=== PATIENT | female | born 1960 | race Hispanic/Latino ===

== ENCOUNTER 2017-08-23 10:17 | Day surgery (SDC) | payer SELFPAY ==
[2017-08-23] MEDS ORDERED: Ringers Lactate 1,000 ML IV ONE (10:52)
[2017-08-23] MEDS ORDERED: BUPIVACA 0.25%/EPI 0.0005%/PF 30 ML VIAL ONE (10:53)
[2017-08-23] MEDS ORDERED: PROPOFOL 200 MG/20 ML VIAL IV ONE (11:30)
[2017-08-23] MEDS ORDERED: LIDOCAINE 2% MPF 5 ML VIAL ONE (11:31)
[2017-08-23] MEDS ORDERED: FENTANYL CITR 100 MCG/2 ML ONE (11:31)
[2017-08-23] MEDS ORDERED: MIDAZOLAM HCL 2 MG/2 ML INJ ONE (11:31)
[2017-08-23] MEDS ORDERED: CEFAZOLIN/SWI 1gm 1 GM/10 ML SYR ONE (13:03)
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
== END 2017-08-23 13:42 | disposition home or self-care (01) ==
LOC: OR 10:17
PROVIDERS: ATTEND Surgery
PROC: 0HB6XZZ Excision of Back Skin, External Approach (ICD-10-PCS; principal; 2017-08-23 10:45)
DX: L72.3 Sebaceous cyst (principal); Z53.9 Procedure and treatment not carried out, unspecified reason
CPT/HCPCS: J0690; J2250; J3010

== ENCOUNTER 2017-08-31 06:40 | Day surgery (SDC) | payer SELFPAY ==
[2017-08-31] MEDS ORDERED: Ringers Lactate 1,000 ML IV ONE (07:34)
[2017-08-31] MEDS ORDERED: CEFAZOLIN/SWI 1gm 1 GM/10 ML SYR ONE (07:35)
[2017-08-31] MEDS ORDERED: BUPIVACA 0.25%/EPI 0.0005%/PF 30 ML VIAL ONE (09:15)
[2017-08-31] MEDS ORDERED: MIDAZOLAM HCL 2 MG/2 ML INJ ONE (10:32)
[2017-08-31] MEDS ORDERED: PROPOFOL 200 MG/20 ML VIAL IV ONE (10:32)
[2017-08-31] MEDS ORDERED: LIDOCAINE 1% MPF 5 ML VIAL ONE (10:33)
[2017-08-31] MEDS ORDERED: FENTANYL CITR 100 MCG/2 ML ONE (10:33)
[2017-08-31] MEDS ORDERED: ONDANSETRON 4 MG/2 ML VIAL ONE ×2 (10:57→11:36)
[2017-08-31] MEDS ORDERED: EPHEDRINE SULF 50 MG/5 ML SYR ONE (10:58)
--- NOTE | 2017-08-31 11:08 | P.OP ---
Parking Manager: Lauro Acuna Preoperative diagnosis: Upper Back Sebacous cyst Postoperative diagnosis: Upper Back Sebacous cyst Primary procedure: Excision of Upper Back Sebacous cyst Anesthesia: GETA + Local Estimated blood loss: <5cc Specimen: Sebaceous Cyst with sebum Findings: ruptured with drainage externally Complications: None Transferred to: Recovery Room Condition: Good
[2017-08-31] MEDS ORDERED: MEPERIDINE HCL 25 MG/0.5 ML ONE (11:35)
[2017-08-31] MEDS: MEPERIDINE HCL 25 MG/0.5 ML ONE ×2 (11:45→11:50)
[2017-08-31] MEDS ORDERED: CODEINE 30MG/APAP 300MG TAB ONE (12:21)
[2017-08-31] MEDS ORDERED: PROMETHAZINE 25 MG/ML VIAL ONE (14:18)
--- NOTE | 2017-08-31 22:39 | OP ---
Date of Procedure: 08/31/2017 Surgeon: Mikael Nguyễn MD, Preoperative Diagnosis: Upper back sebaceous cyst. Postoperative Diagnosis: Upper back sebaceous cyst. Procedure Performed: Excision of 4 cm upper back sebaceous cyst. Anesthesia: General endotracheal plus local. Estimated Blood Loss: Less 5 cc. Specimen: Sebaceous cyst with sebum. Findings: Sebaceous cyst was ruptured prior to incision and draining sebum through the external skin . Complications: None. Disposition: Transferred to recovery room in good condition. Procedure In Detail: After informed consent was obtained, the patient was brought to the operating r oom and prepped and draped in the usual sterile fashion. After adequate anesthesia was achieved, the area was additionally anesthetized with 0.25% Marcaine with epinephrine. Sharply incised a small el lipse of skin, was taken out where it was noted to be compromised by the cyst due to its close proxim ity. This ellipse of skin was sent off for pathologic examination. The dissection continued down ci rcumferentially to expose the entire cyst. The entire cyst was removed en bloc and with the associat ed sebum was sent for pathologic examination. The area was then copiously irrigated. Hemostasis was achieved with electrocautery. The skin was then closed with a vertical mattress stitch using a 2-0 nylon interrupted fashion and a few interrupted sutures in between of the same type. Sterile dressin g was placed over the top. The patient tolerated the procedure well without evidence of complication and transected back in good condition. All counts were correct at the end of the case. GRACE/SANTANA Voice ID: [id number] Report ID: [id number]
== END 2017-08-31 12:55 | disposition home or self-care (01) ==
LOC: OR 06:40
PROVIDERS: ATTEND Surgery
PROC: 0JB70ZZ Excision of Back Subcutaneous Tissue and Fascia, Open Approach (ICD-10-PCS; principal; 2017-08-31 09:15)
DX: L72.3 Sebaceous cyst (principal)
CPT/HCPCS: 88304; 88305; J0690; J2175; J2250; J2405; J2550; J3010

== ENCOUNTER 2021-04-14 18:25 | Emergency (ER) | payer OTHER, SELFPAY ==
--- OUTSIDE RECORDS SUMMARY | 2021-04-14 18:33 | XMS REPORT | Continuity of Care Document ---
:1960 Author Organization [facility] t Address [address] [place] [address] Care Team Providers Name Role Phone Unavailable Unavailable Unavailable Problems This patient has no known problems. Allergies, Adverse Reactions, Alerts This patient has no known allergies or adverse reactions. Medications Ordered Filled Start Stop Current Ordering Indication Dosage Frequency Signature Comments Components Source Medication Medication Date Date Medication? Clinician (SIG) Name Name Citalopram Citalopram Yes Na Arita TAKE [address] [facility] Hydrobromid Hydrobromid TABLET BY [facility] Procedures This patient has no known procedures. Encounters Start End Encounter Admission Attending Care Care Encounter Source Date/Time Date/Time Type Type Clinicians Facility Department ID 2021-02-18 2021-02-18 Outpatient [facility] [id number] [facility] 2020-08-19 2020-08-19 Outpatient [facility] [id number] [facility] 2020-08-03 2020-08-03 Outpatient [facility] [id number] [facility] 2020-04-24 2020-04-24 Outpatient [facility] [id number] [facility] 2020-01-10 2020-01-10 [facility] [id number] [facility] 14[facility]17[facility]17[facility] [place] [facility] 2019-08-29 2019-08-29 [facility] [id number] [facility] 11:00:00 11:00:00 [place] [facility] l Medicine Outpati ent Clinics 2019-02-26 2019-02-26 [facility] [id number] [facility] 11:00:00 11:00:00 [place] [facility] 2018-07-24 2018-07-24 [facility] [id number] [facility] 09:00:00 09:00:00 [place] [facility] l Medicine Outpati ent Clinics 2018-05-23 2018-05-23 [facility] [id number] [facility] 09:53:00 09:53:00 [place] [facility] Clin[facility] 2018-05-22 2018-05-22 [facility] [id number] [facility] 16:53:00 16:53:00 [place] [address] [facility] Clin[facility] 2018-04-20 2018-04-20 [facility] [id number] [facility] 08:31:00 08:31:00 [place] [facility] [employer] [facility] Out[facility] Clinics 2018-04-11 2018-04-11 [facility] [id number] [facility] [address] 10:15:00 10:15:00 [place] [address] [facility] Clin[facility] 2017-10-04 2017-10-04 [facility] [id number] [facility] 08:45:00 08:45:00 [place] [facility] [facility] Clin[facility] Results This patient has no known results.
[2021-04-14 19:53] LABS: Basophils % 1.1 % (0-1.3); Hematocrit 40.7 % (36.0-45.0); Lymphocytes % 39.6 % (15.3-44.8); MPV 8.1 fL (7.6-11.3); RBC Red Blood Cell Count 4.97 M/uL (3.86-4.86)
[2021-04-14 19:56] LABS: Protime INR 0.87
[2021-04-14 20:35] LABS: Potassium 3.5 mmol/L (3.5-5.1)
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
[2021-04-14 21:56] VITALS: BP 156/80; TEMP 98; O2SAT 94
== END 2021-04-14 21:39 | disposition home or self-care (01) ==
LOC: ER 18:25
DX: S39.012A Strain of muscle, fascia and tendon of lower back, initial encounter (principal); R19.04 Left lower quadrant abdominal swelling, mass and lump; R10.9 Unspecified abdominal pain; V49.40XA Driver injured in collision with unspecified motor vehicles in traffic accident, initial encounter
CPT/HCPCS: 85025; 80048; 36415; 85610; 85730; 71260; 74177; 99284; Q9967

== ENCOUNTER 2024-04-12 15:05 | Emergency (ER) | payer OTHER, SELFPAY ==
[2024-04-12] MEDS ORDERED: PHENAZOPYRIDINE 100MG TAB PO ONE (16:01)
[2024-04-12] MEDS ORDERED: KETOROLAC 30 MG/ML INJ ONE (16:01)
[2024-04-12 16:39] LABS: Renal Epithelial <5 /HPF (None Seen); Specific Gravity 1.009 (1.005-1.030); Sqamous Epithelial <5 /HPF (None Seen); Urine Bacteria <20 /HPF (<20); Urine Bilirubin NEGATIVE (Negative); Urine Blood 1+ (Negative); Urine Clarity Turbid (Clear); Urine Color Light-Yellow (Yellow); Urine Culture Reflex Order REFLEXED; Urine Glucose NEGATIVE (Negative); Urine Ketones NEGATIVE (Negative); Urine Micro Reflex YN NO BILL MICROSCOPIC; Urine Nitrite NEGATIVE (Negative); Urine Protein NEGATIVE (Negative); Urine RBC 21-50 /HPF (None Seen); Urine Urobilinogen Normal (Normal); Urine WBC >50 /HPF (<5); Urine pH 6.5 (5.0-7.0)
[2024-04-12] MEDS ORDERED: NITROFURAN MACRO 100 MG CAP PO ONE (16:59)
--- NOTE | 2024-04-12 17:00 | ER ---
Nurse's Notes [facility] Name: Gisele Rodriguez Age: 64 yrs Sex: Female : 1960 Arrival Date: 04/12/2024 Time: 15:05 Bed 13 Private MD: Diagnosis: UTI/ Urinary tract infection, site not specified Presentation: 04/12 15:49 Chief complaint: Patient states: Burning with urination, frequency, and lower abdominal rs5 pain that started this morning. Coronavirus screen: At this time, the client does not indicate any symptoms associated with coronavirus-19. Ebola Screen: No symptoms or risks identified at this time. Initial Sepsis Screen: Does the patient meet any 2 criteria? No. Patient's initial sepsis screen is negative. Does the patient have a suspected source of infection? No. Patient's initial sepsis screen is negative. Risk Assessment: Do you want to hurt yourself or someone else? Patient reports no desire to harm self or others. Onset of symptoms was April 12, 2024. 15:49 Method Of Arrival: Ambulatory rs5 15:49 Acuity: PARVEEN 3 rs5 Historical: - Allergies: 15:50 No Known Allergies; rs5 - PMHx: 15:50 UTI; Hypertensive disorder; Hypercholesterolemia; rs5 - PSHx: 15:50 hysterectomy; rs5 - Immunization history:: Adult Immunizations up to date. - Infectious Disease History:: Denies. - Social history:: Smoking status: Patient denies any tobacco usage or history of. Screenin:20 [facility] ED Fall Risk Assessment (Adult) History of falling in the last 3 months, rs5 including since admission No falls in past 3 months (0 pts) Confusion or Disorientation No (0 pts) Intoxicated or Sedated No (0 pts) Impaired Gait No (0 pts) Mobility Assist Device Used No (0 pt) Altered Elimination No (0 pt) Score/Fall Risk Level 0 - 2 = Low Risk Oriented to surroundings, Maintained a safe environment. Abuse screen: Denies threats or abuse. Nutritional screening: No deficits noted. Tuberculosis screening: No symptoms or risk factors identified. Assessment: 15:15 Reassessment: called pt to exam room. Pt requesting to wait until her special needs ss family member gets picked up from ER lobby. HANNAH Thomas notified. 15:15 Reassessment: pt is still waiting for family member to get picked up from ER lobby. ss 15:50 Reassessment: pt arrived in room . rs5 15:50 General: Appears in no apparent distress. uncomfortable, Behavior is calm, cooperative. rs5 Pain: Denies pain. Complains of pain in lower abdomen Pain does not radiate. Pain currently is 3 out of 10 on a pain scale. Quality of pain is described as aching, Is continuous. Neuro: Level of Consciousness is awake, alert, obeys commands, Oriented to person, place, time, situation. Cardiovascular: Patient's skin is warm and dry. Respiratory: Airway is patent Respiratory effort is even, unlabored, Respiratory pattern is regular, symmetrical. GI: Abdomen is round non-distended, Abd is soft and non tender X 4 quads. GI: No signs and/or symptoms were reported involving the gastrointestinal system. : Reports burning with urination, cramping, urgency. EENT: No signs and/or symptoms were reported regarding the EENT system. Derm: Skin is intact, Skin is pink, warm \T\ dry. Musculoskeletal: Range of motion: intact in all extremities. 16:29 Reassessment: Patient and/or family updated on plan of care and expected duration. Pain rs5 level reassessed. Patient is alert, oriented x 3, equal unlabored respirations, skin warm/dry/pink. 16:59 Reassessment: Patient and/or family updated on plan of care and expected duration. Pain rs5 level reassessed. Patient is alert, oriented x 3, equal unlabored respirations, skin warm/dry/pink. Vital Signs: 15:49 BP 134 / 71; Pulse 74; Resp 17; Temp 98(O); Pulse Ox 99% ; rs5 16:10 BP 125 / 77; Pulse 81; Resp 17; Pulse Ox 98% on R/A; rs5 16:50 BP 128 / 74; Pulse 77; Resp 17; Pulse Ox 99% on R/A; rs5 ED Course: 15:11 Patient arrived in ED. ra3 15:11 Chery Whitlock [facility]-C is [facility]. sb4 15:11 Julius De Leon MD is Attending Physician. sb4 15:16 Ze Concepcion, RN is Primary Nurse. bp 15:25 Frank Guzmán, ZENIA is Primary Nurse. rs5 15:50 Triage completed. rs5 15:50 Patient has correct armband on for positive identification. Placed in gown. Bed in low rs5 position. Call light in reach. Side rails up X2. 15:50 No provider procedures requiring assistance completed. rs5 17:05 Patient did not have IV access during this emergency room visit. rs5 Administered Medications: 16:00 Drug: Ketorolac IM 30 mg IM once Route: IM; Site: left deltoid; rs5 17:00 Follow up: Response: No adverse reaction; Pain is decreased rs5 16:09 Drug: Phenazopyridine PO 200 mg PO once Route: PO; rs5 17:00 Follow up: Response: No adverse reaction rs5 17:00 Drug: Macrobid PO 100 mg PO once; administer with food Route: PO; rs5 Medication: 16:29 VIS not applicable for this client. rs5 Outcome: 16:59 Discharge ordered by MD. sb4 17:05 Discharged to home ambulatory, rs5 17:05 Condition: stable rs5 17:05 Discharge instructions given to patient, family, Instructed on discharge instructions, follow up and referral plans. medication usage, Demonstrated understanding of instructions, follow-up care, medications, Prescriptions given X 1, 17:06 Patient left the ED. rs5 Signatures: Afia Mcdaniel RN Ze Dumont RN RN bp Brown, Sophia, PA-Nestor CARNEY sb4 Frank Guzmán RN RN rs5 Yajaira Garibay ra3
--- NOTE | 2024-04-12 17:00 | EDPHYS ---
Physician Documentation [facility] Name: Gisele Rodriguez Age: 64 yrs Sex: Female : 1960 Arrival Date: 04/12/2024 Time: 15:05 Bed 13 Private MD: ED Physician Julius De Leon HPI: 04/12 15:52 This 64 yrs old Female presents to ER via Ambulatory with complaints of sb4 Urinary Problem. 15:52 The patient presents with urinary symptoms, dysuria, frequency, urgency. Onset: The sb4 symptoms/episode began/occurred this morning. Modifying factors: The symptoms are alleviated by nothing, the symptoms are aggravated by nothing. Associated signs and symptoms: Pertinent negatives: dyspareunia, fever, hematuria, nausea, vaginal bleeding, vaginal discharge, vomiting. The patient has experienced similar episodes in the past, a few times, but today's symptoms are worse, more painful. Historical: - Allergies: 15:50 No Known Allergies; rs5 - PMHx: 15:50 UTI; Hypertensive disorder; Hypercholesterolemia; rs5 - PSHx: 15:50 hysterectomy; rs5 - Immunization history:: Adult Immunizations up to date. - Infectious Disease History:: Denies. - Social history:: Smoking status: Patient denies any tobacco usage or history of. ROS: 15:52 Positive for urinary symptoms, burning with urination, sb4 15:52 Constitutional: Negative for fever, chills, and weight loss, 15:52 All other systems are negative, Exam: 15:52 Head/Face: Normocephalic, atraumatic. Eyes: Extra-ocular motions intact. Periorbital sb4 areas with no swelling, redness, or edema. ENT: Mucous membranes moist. Respiratory: No increased work of breathing, no retractions or nasal flaring. Abdomen/GI: Soft, non-tender, no distension. Back: No spinal tenderness. No costovertebral tenderness. Full range of motion. Skin: Warm, dry with normal turgor. Normal color with no rashes, no lesions, and no evidence of cellulitis. 15:52 Constitutional: The patient appears alert, awake, uncomfortable, Vital Signs: 15:49 BP 134 / 71; Pulse 74; Resp 17; Temp 98(O); Pulse Ox 99% ; rs5 16:10 BP 125 / 77; Pulse 81; Resp 17; Pulse Ox 98% on R/A; rs5 16:50 BP 128 / 74; Pulse 77; Resp 17; Pulse Ox 99% on R/A; rs5 MDM: 15:16 Medical Screening Exam initiated sb4 16:58 Data reviewed: vital signs, nurses notes, lab test result(s), and as a result, I will sb4 discharge patient. Counseling: I had a detailed discussion with the patient and/or guardian regarding the historical points, exam findings, and any diagnostic results supporting the discharge/admit diagnosis, lab results, to return to the emergency department if symptoms worsen or persist or if there are any questions or concerns that arise at home. 04/12 15:20 Order name: UAM; Complete Time: 16:48 sb4 04/12 16:49 Order name: Urine Culture EDMS Administered Medications: 16:00 Drug: Ketorolac IM 30 mg IM once Route: IM; Site: left deltoid; rs5 17:00 Follow up: Response: No adverse reaction; Pain is decreased rs5 16:09 Drug: Phenazopyridine PO 200 mg PO once Route: PO; rs5 17:00 Follow up: Response: No adverse reaction rs5 17:00 Drug: Macrobid PO 100 mg PO once; administer with food Route: PO; rs5 Disposition Summary: 04/12/24 16:59 Discharge Ordered Notes: Location: Home sb4 Problem: new sb4 Symptoms: have improved sb4 Condition: Stable sb4 Diagnosis - UTI/ Urinary tract infection, site not specified sb4 Followup: sb4 - With: Emergency Department - When: As needed - Reason: Fever > 102 F, Worsening of condition Discharge Instructions: - Discharge Summary Sheet sb4 - Urinary Tract Infection, Adult, [id number] sb4 Forms: - Antibiotic Education sb4 - Patient Portal Instructions sb4 - Leadership Thank You Letter sb4 Prescriptions: - Macrobid 100 mg Oral capsule - take 1 capsule ORAL route every 12 hours for 5 days; 10 capsule; Refills: 0, sb4 Product Selection Permitted Signatures: Dispatcher [employer] Chery Gerardo PA-C PA-C sb4 Frank Guzmán RN RN rs5
[2024-04-12 19:50] VITALS: TEMP 98
[2024-04-12 19:52] VITALS: BP 128/74; O2SAT 99
--- OUTSIDE RECORDS SUMMARY | 2024-04-15 08:18 | XMS REPORT | Continuity of Care Document ---
Author Name Unknown Address [address] [facility] [address] [place] [address] [facility] thconnect Address [address] [facility] [address] [place] [address] Care Team Providers Care Electrician Telephone Name Role Phone Ruth Anderson Primary Care Physicia n Yaquelin Rouse Attending Clinician Unavailab Ana Loomis Attending Clinician Unavailable Nora Arita Attending Clinician Unavailable SILVIO PLASENCIA Attending Clinician Unavailab ELANA Basurto Attending Clinician Unavailable LAB47 Attending Clinician Unavailable TIMOTEO SANTIAGO Attending Clinician UnavailAIME Ojeda Attending Clinician Unavailable MD NADINE Attending Clinician Unavailab le LAB90 Attending Clinician Unavailable [facility], [facility] Attending Clinician Unavailable Ruth Anderson Attending Clinician + Dorothy Urbano MD Attending Clinician [phone] DOROTHY URBANO Attending Clinician Unavailable Pgy2 Attending Clinician Unavailable Marla Valentino Attending Clinician [phone] RUTH FOOTE Attending Clinician Unavail able Doctor Unassigned, Portia Attending Clinician U navailable Pgy1 Attending Clinician Unavailable DOROTHY URABNO Admitting Clinician Unavailable Payers Payer Name Policy Type Policy Number Effective Date Expirati on Date Source [employer] MP [employer] 1 O [employer] 73 ON 9 [id number] 2023 00:00:00 Problems Condition Name Condition Details Condition Category Status Onset Date Resolution Date Last Treatment Date Treating Clinician Comments Source Cyst of left ovary Cyst of left ovary Disease Active 2023-05 0 00:00: 00 Zahraa Duncan - [facility] Depression with anxiety Depression with anxiety Disease Active 01-24 00:00: 00 Zahraa Duncan - [facility] Gastroesop hageal reflux disease without esophagiti s Gastroesop hageal reflux disease without esophagiti s Disease Active 01-24 00:00: 00 Zahraa Duncan - [facility] Skin lesion of breast Skin lesion of breast Disease Active 07-06 00:00: 00 Zahraa Duncan - [facility] Well adult exam Well adult exam Disease Active 05-15 00:00: 00 Zahraa Duncan - [facility] Primary hypertensi on Primary hypertensi on Disease Active 2022-05 00:00: 00 Zahraa Daley [facility] Hyperlipid emia Hyperlipid emia Disease Active 2022-05 00:00: 00 Zahraa Duncan - [facility] Other general counseling and advice for contracept law management Other general counseling and advice for contracept law management Disease Active 05-17 00:00: 00 [facility] History of partial hysterecto my History of partial hysterecto my Disease Active 05-17 00:00: 00 [facility] Essential hypertensi on, benign Essential hypertensi on, benign Disease Active 05-17 00:00: 00 [facility] Cyst of left ovary Cyst of left ovary Disease Active 05-17 00:00: 00 Overview: Formattin g of this note might be different from the original. 18.3x10 cm [facility] Dependent relative needing care at home Caregiver burden Problem [facility] Obesity Obesity (BMI 30.0-34.9) Problem [facility] Generalize d anxiety disorder AMBER (generaliz ed anxiety disorder) Problem [facility] White coat hypertensi on White coat hypertensi on Problem [facility] Counseling about tobacco use Tobacco abuse counseling Problem [facility] [id number] Prediabete s Problem [facility] [id number] Hypertrigl yceridemia Problem [facility] Depression Depression Problem [facility] [id number] Primary insomnia Problem [facility] Nicotine dependence Nicotine dependence Problem [facility] Sinusitis Sinusitis Problem [facility] Chronic fatigue syndrome Chronic fatigue Problem [facility] [id number] Other chronic pain Problem [facility] [id number] Generalize d anxiety disorder Problem [facility] Depression Depression Disease Active Maday Duncan - Externa l Social History Social Habit Start Date Stop Date Quantity Comments Source Sexual orientation Maday Duncan - External ASSERTION Not Zahraa Duncan - External History of tobacco use Cigarette Smoker Zahraa franco - External Exposure to SARS-CoV-2 (event) [facility] Alcoholic beverage intake 2024-03-25 00:00:00 2024-03-25 00:00:00 Current drinker of alcohol (finding) Zahraa Duncan - External Alcohol Comment 2024-01-17 00:00:00 2024-01-17 00:00:00 social Zahraa Duncan - External Tobacco Comment 2024-01-17 00:00:00 2024-01-17 00:00:00 1 pk/day Zahraa Duncan - External Cigarettes smoked current (pack per day) - Reported 2024-01-17 00:00:00 2024-01-17 00:00:00 Zahraa Daley External Cigarette pack-years 2024-01-17 00:00:00 2024-01-17 00:00:00 Zahraa Duncan - External Tobacco use and exposure 2024-01-17 00:00:00 2024-01-17 00:00:00 Smokeless tobacco non-user Zahraa Duncan - External Alcohol intake 2023-07-07 00:00:00 2023-07-07 00:00:00 Current drinker of alcohol (finding) Zahraa Duncan - External History of Social function 2023-04-12 00:00:00 2023-04-12 00:00:00 Zahraa Morelsocratessalvador - External Sex 2023-04-07 16:55:49 2023-04-07 16:55:49 Female (finding) Zahraa Duncan - External Sex assigned at 1960 00:00:00 1960 00:00:00 Zahraa Morelsocratessalvador Heard Smoking Status Start Date Stop Date Source Smokes tobacco daily 2024-01-17 00:00:00 Zahraa Heard Never smoked tobacco [facility] Medications Ordered Medication Name Filled Medication Name Start Date Stop Date Current Medication? Ordering Clinician Indication Dosage Frequency Signature (SIG) Comments Components Source Albuterol HFA 108 (90 Base) MCG/ACT IN AERS 2023-05 00:00: 00 Yes [id number] 2{puff} Q.25D Inhale 2 puffs into the lungs every 6 hours as needed for wheezing. Zahraa haney Benzonatate (Tessalon Perles) 100 MG oral Capsule 2023-05 00:00: 00 03-25 00:00 :00 No [id number] 100mg Q.[id number] 3D Take 1 capsule (100 mg total) by mouth 3 times daily as needed for cough. Zahraa haney Fluoxetine HCl (PROzac) 20 MG oral Capsule 9-05 00:00: 00 Yes [id number] 20mg Take 1 capsule (20 mg total) by mouth every 24 hours. Zahraa haney Na Sulfate-K Sulfate-Mg Sulf (SUPREP BOWEL PREP KIT) 17.5-3.13-1 .6 GM/177ML oral Solution 11-30 00:00: 00 Yes [id number] Instructio ns provided to patient. Follow instructio ns provided by provider.. Zahraa haney Pantoprazol e Sodium 40 MG oral Tablet Delayed Response 11-30 00:00: 00 Yes [id number] 40mg QD Take 1 tablet (40 mg total) by mouth daily. Zahraa haney Fluoxetine HCl (PROzac) 20 MG oral Capsule 09-28 00:00: 00 Yes [id number] 20mg Take 1 capsule (20 mg total) by mouth every 24 hours. Zahraa haney Carvedilol (Coreg) 6.25 MG oral Tablet 09-28 00:00: 00 Yes [id number] 6.25mg Take 1 tablet (6.25 mg total) by mouth in the morning and 1 tablet (6.25 mg total) in the evening. Take with meals. Zahraa haney Amlodipine Besylate 10 MG oral Tablet 09-28 00:00: 00 Yes [id number] 10mg Take 1 tablet (10 mg total) by mouth every 24 hours. Zahraa haney Atorvastati n Calcium 20 MG oral Tablet 09-28 00:00: 00 Yes [id number] 20mg Take 1 tablet (20 mg total) by mouth every 24 hours. Zahraa haney busPIRone HCl 5 MG oral Tablet 09-28 00:00: 00 Yes [id number] 5mg Q.5D Take 1 tablet (5 mg total) by mouth 2 times daily. Zahraa haney LISINOPRIL- HCTZ 20-25 MG oral Tablet 09-28 00:00: 00 Yes [id number] 1{tbl} Take 1 tablet by mouth every 24 hours. Zahraa haney Cefdinir 300 MG oral Capsule 08-06 00:00: 00 11-30 00:00 :00 No [id number] 300mg Q.5D Take 1 capsule (300 mg total) by mouth 2 times daily. Zahraa haney Atorvastati n Calcium 20 MG oral Tablet 07-06 15:12: 44 Yes 20mg 1 tablet (20 mg total) every 24 hours. Zahraa haney Amlodipine Besylate 10 MG oral Tablet 07-06 15:12: 44 Yes 10mg 1 tablet (10 mg total) every 24 hours. Zahraa haney Carvedilol (Coreg) 6.25 MG oral Tablet 07-06 15:12: 44 Yes 6.25mg Take 1 tablet (6.25 mg total) by mouth in the morning and 1 tablet (6.25 mg total) in the evening. Take with meals. Zahraa haney busPIRone HCl 5 MG oral Tablet 07-06 15:12: 44 Yes 5mg Take 1 tablet (5 mg total) by mouth 2 times daily. Zahraa haney Atorvastati n Calcium 20 MG oral Tablet 05-15 09:19: 01 Yes 20mg 1 tablet (20 mg total) every 24 hours. Zahraa haney Amlodipine Besylate 10 MG oral Tablet 05-15 09:19: 01 Yes 10mg 1 tablet (10 mg total) every 24 hours. Zahraa haney Carvedilol (Coreg) 6.25 MG oral Tablet 05-15 09:19: 01 Yes 6.25mg Take 1 tablet (6.25 mg total) by mouth in the morning and 1 tablet (6.25 mg total) in the evening. Take with meals. Zahraa haney busPIRone HCl 5 MG oral Tablet 05-15 09:19: 01 Yes 5mg Take 1 tablet (5 mg total) by mouth 2 times daily. Zahraa haney LISINOPRIL- HCTZ 20-25 MG oral Tablet 2022-05 00:00: 00 Yes [id number] 1{tbl} Take 1 tablet by mouth every 24 hours. Zahraa haney Fluoxetine HCl (PROzac) 20 MG oral Capsule 2022-05 00:00: 00 Yes [id number] 20mg Take 1 capsule (20 mg total) by mouth every 24 hours. Zahraa haney busPIRone HCl 5 MG oral Tablet 2022-05 16:18: 13 Yes 5mg Take 1 tablet (5 mg total) by mouth 2 times daily. Zahraa haney Atorvastati n Calcium 20 MG oral Tablet 2022-05 16:01: 42 Yes 20mg 1 tablet (20 mg total) every 24 hours. Zahraa haney Amlodipine Besylate 10 MG oral Tablet 2022-05 16:01: 42 Yes 10mg 1 tablet (10 mg total) every 24 hours. Zahraa haney Fluoxetine HCl (PROzac) 20 MG oral Capsule 2022-05 16:01: 42 Yes 20mg Take 1 capsule (20 mg total) by mouth every 24 hours. Zahraa haney Carvedilol (Coreg) 6.25 MG oral Tablet 2022-05 16:01: 42 Yes 6.25mg Take 1 tablet (6.25 mg total) by mouth in the morning and 1 tablet (6.25 mg total) in the evening. Take with meals. Zahraa haney LISINOPRIL- HCTZ 20-25 MG oral Tablet 01-30 00:00: 00 Yes 1{tbl} Take 1 tablet by mouth every 24 hours. Zahraa haney busPIRone HCl 10 MG busPIRone HCl 10 MG 08-25 00:00: 00 No 1{table t} BID busPIRone HCl 10 MG citalopram hydrobromid e (CITALOPRAM ORAL) 05-17 16:12: 25 Yes Take by mouth. [facility] amLODIPine 5 mg tablet 05-17 16:01: 39 Yes 5mg Take 5 mg by mouth daily. [facility] lisinopriL 10 mg tablet 05-17 16:01: 39 Yes 10mg Take 10 mg by mouth daily. [facility] CARVEDILOL ORAL 05-17 16:01: 39 Yes Take by mouth. [facility] Multivitami n Multivitami n 2017-05 00:00: 00 No 5{ml} QID Multivitam in amLODIPine Besylate 10 MG amLODIPine Besylate 10 MG No 1{table t} QD amLODIPine Besylate 10 MG Coreg 6.25 MG Coreg 6.25 MG No 1{table t} BID Coreg 6.25 MG Atorvastati n Calcium 20 MG Atorvastati n Calcium 20 MG No 1{table t} QD Atorvastat in Calcium 20 MG PROzac 20 MG PROzac 20 MG No 1{capsu le_in_t he_morn ing} QD PROzac 20 MG Immunizations Ordered Immunization Name Filled Immunization Name Date Status Comments Source Covid-19 Vaccine (Paperless Post), Mrna-lnp, Rafi Protein, Pf, 30mcg/0.3ml,IM Unknown Completed Zahraa [employer] - External Influenza Virus Vaccine, No Preserv, age 6 months and up Unknown Completed Zahraa S eybold - External Influenza Virus Vaccine, No Preserv, age 6 months and up Unknown Completed Zahraa S eybold - External Pneumococcal Vaccine, Polysaccharide Unknown Completed Zahraa Seybol d - External Covid-19 Vaccine Moderna (Spikevax), Mrna-lnp, Rafi Protein, Pf Unknown Completed Zahraa Seybold - External Covid-19 Vaccine (Paperless Post), Mrna-lnp, Rafi Protein, Pf, 30mcg/0.3ml,IM Unknown Completed [facility] - External Influenza Virus Vaccine, No Preserv, age 6 months and up Unknown Completed Zahraa S eybold - External Influenza Virus Vaccine, No Preserv, age 6 months and up Unknown Completed Zahraa S eybold - External Pneumococcal Vaccine, Polysaccharide Unknown Completed [facility] - External Covid-19 Vaccine Moderna (Spikevax), Mrna-lnp, Rafi Protein, Pf Unknown Completed Zahraa Seybold - External Covid-19 Vaccine (Paperless Post), Mrna-lnp, Rafi Protein, Pf, 30mcg/0.3ml,IM Unknown Completed [facility] - External Influenza Virus Vaccine, No Preserv, age 6 months and up Unknown Completed Zahraa S eybold - External Influenza Virus Vaccine, No Preserv, age 6 months and up Unknown Completed Zahraa S eybold - External Pneumococcal Vaccine, Polysaccharide Unknown Completed [facility] - External Covid-19 Vaccine Moderna (Spikevax), Mrna-lnp, Rafi Protein, Pf Unknown Completed Zahraa Seybold - External Covid-19 Vaccine (Paperless Post), Mrna-lnp, Rafi Protein, Pf, 30mcg/0.3ml,IM Unknown Completed Zahraa Seol d - External Influenza Virus Vaccine, No Preserv, age 6 months and up Unknown Completed Zahraa S eybold - External Influenza Virus Vaccine, No Preserv, age 6 months and up Unknown Completed Zahraa S eybold - External Pneumococcal Vaccine, Polysaccharide Unknown Completed Zahraa Seol d - External Covid-19 Vaccine Moderna (Spikevax), Mrna-lnp, Rafi Protein, Pf Unknown Completed Zahraa Seybold - External Covid-19 Vaccine (Pfizer), Mrna-lnp, Rafi Protein, Pf, 30mcg/0.3ml,IM Unknown Completed Zahraa Morelol d - External Influenza Virus Vaccine, No Preserv, age 6 months and up Unknown Completed Zahraa S eybold - External Influenza Virus Vaccine, No Preserv, age 6 months and up Unknown Completed Zahraa S eybold - External Pneumococcal Vaccine, Polysaccharide Unknown Completed Zahraa ol d - External Covid-19 Vaccine Moderna (Spikevax), Mrna-lnp, Rafi Protein, Pf Unknown Completed [facility]o Centerold - External Covid-19 Vaccine (Pfizer), Mrna-lnp, Rafi Protein, Pf, 30mcg/0.3ml,IM Unknown Completed Zahraa Seol d - External Influenza Virus Vaccine, No Preserv, age 6 months and up Unknown Completed Zahraa S eybold - External Influenza Virus Vaccine, No Preserv, age 6 months and up Unknown Completed Zahraa S eybold - External Pneumococcal Vaccine, Polysaccharide Unknown Completed Zahara Seol d - External Covid-19 Vaccine Moderna (Spikevax), Mrna-lnp, Rafi Protein, Pf Unknown [facility] Vaccine (Pfizer), Mrna-lnp, Rafi Protein, Pf, 30mcg/0.3ml,IM Unknown Completed Zahraa Seol d - External Influenza Virus Vaccine, No Preserv, age 6 months and up Unknown Completed Zahraa S eybold - External Influenza Virus Vaccine, No Preserv, age 6 months and up Unknown Completed Zahraa S eybold - External Pneumococcal Vaccine, Polysaccharide Unknown Completed Zahraa ol d - External Covid-19 Vaccine Moderna (Spikevax), Mrna-lnp, Rafi Protein, Pf Unknown Completed Zahraa Seybold - External Covid-19 Vaccine (Pfizer), Mrna-lnp, Rafi Protein, Pf, 30mcg/0.3ml,IM Unknown Completed Zahraa Seol d - External Influenza Virus Vaccine, No Preserv, age 6 months and up Unknown Completed Zahraa Mckeon eybold - External Influenza Virus Vaccine, No Preserv, age 6 months and up Unknown Completed Zahraa Mckeon eybold - External Covid-19 Vaccine (Pfizer), Mrna-lnp, Rafi Protein, Pf, 30mcg/0.3ml,IM Unknown Completed Zahraa Jamaol d - External Influenza Virus Vaccine, No Preserv, age 6 months and up Unknown Completed Zahraa Mckeon eybold - External Influenza Virus Vaccine, No Preserv, age 6 months and up Unknown Completed Zahraa reinosobold - External Pneumococcal Vaccine, Polysaccharide Unknown Completed Zahraa Jamaol d - External Covid-19 Vaccine Moderna (Spikevax), Mrna-lnp, Rafi Protein, Pf Unknown Completed Zahraa Duncan - External Vital Signs Vital Name Observation Time Observation Value Comments S ource Systolic blood pressure 2024-03-25 22:20:00 132 mm[Hg] Zahraa Morelybo ld - External Diastolic blood pressure 2024-03-25 22:20:00 62 mm[Hg] Zahraa Morelybo ld - External Heart rate 2024-03-25 21:51:00 62 /min Mingose cait Morelsocratessalvador - External Body temperature 2024-03-25 21:51:00 36.61 Cecilia Zahraa Morelybold - External Respiratory rate 2024-03-25 21:51:00 16 /min Zahraa Jamaold - External Body height 2024-03-25 21:51:00 152.4 cm Onelia reinoso Seybold - External Body weight 2024-03-25 21:51:00 77.565 kg Onelia reinoso Seybold - External BMI 2024-03-25 21:51:00 33.40 kg/m2 Onelia reinoso Seybold - External Oxygen saturation in Arterial blood by Pulse oximetry 2024-03-25 21:51:00 100 /min aZhraa Jamao ld - External Systolic blood pressure 2024-03-08 14:22:00 132 mm[Hg] Zahraa Morelybo ld - External Diastolic blood pressure 2024-03-08 14:22:00 79 mm[Hg] Zahraa Morelybo ld - External Heart rate 2024-03-08 14:22:00 59 /min Kelse y Seybold - External Respiratory rate 2024-03-08 14:22:00 19 /min Zahraa Seybold - External Body height 2024-03-08 14:22:00 152.4 cm Onelia ey Seybold - External Body weight 2024-03-08 14:22:00 77.837 kg Onelia ey Seybold - External BMI 2024-03-08 14:22:00 33.51 kg/m2 Onelia ey Seybold - External Systolic blood pressure 2024-02-22 13:51:00 124 mm[Hg] Zahraa Seybo ld - External Diastolic blood pressure 2024-02-22 13:51:00 72 mm[Hg] Zahraa Seybo ld - External Heart rate 2024-02-22 13:51:00 68 /min Mingose y Seybold - External Body temperature 2024-02-22 13:51:00 36.61 Cecilia Zahraa Seybold - External Respiratory rate 2024-02-22 13:51:00 18 /min Zahraa Seybold - External Body height 2024-02-22 13:51:00 152.4 cm Onelia ey Seybold - External Body weight 2024-02-22 13:51:00 75.807 kg Onelia ey Seybold - External BMI 2024-02-22 13:51:00 32.64 kg/m2 Onelia ey Seybold - External Oxygen saturation in Arterial blood by Pulse oximetry 2024-02-22 13:51:00 98 /min Zahraa Seybo ld - External Systolic blood pressure 2024-02-13 20:07:00 123 mm[Hg] Zahraa Seybo ld - External Diastolic blood pressure 2024-02-13 20:07:00 71 mm[Hg] Zahraa Seybo ld - External Heart rate 2024-02-13 20:07:00 72 /min Kelse y Seybold - External Respiratory rate 2024-02-13 20:07:00 18 /min Zahraa Seybold - External Body height 2024-02-13 20:07:00 152.4 cm Onelia ey Seybold - External Body weight 2024-02-13 20:07:00 77.565 kg Onelia ey Seybold - External BMI 2024-02-13 20:07:00 33.40 kg/m2 Onelia ey Seybold - External Oxygen saturation in Arterial blood by Pulse oximetry 2024-02-13 20:07:00 98 /min Zahraa Morelybo ld - External Systolic blood pressure 2024-01-25 19:32:00 116 mm[Hg] Zahraa Seybo ld - External Diastolic blood pressure 2024-01-25 19:32:00 64 mm[Hg] Zahraa Seybo ld - External Heart rate 2024-01-25 19:32:00 68 /min Kelse y Seybold - External Body temperature 2024-01-25 19:32:00 36.67 Ceciila Zahraa Seybold - External Respiratory rate 2024-01-25 19:32:00 18 /min Zahraa Seybold - External Body height 2024-01-25 19:32:00 152.4 cm Onelia ey Seybold - External Body weight 2024-01-25 19:32:00 78.472 kg Onelia ey Seybold - External BMI 2024-01-25 19:32:00 33.79 kg/m2 Onelia ey Seybold - External Oxygen saturation in Arterial blood by Pulse oximetry 2024-01-25 19:32:00 98 /min Zahraa Morelybo ld - External Systolic blood pressure 2023-12-01 14:02:00 130 mm[Hg] Zahraa Seybo ld - External Diastolic blood pressure 2023-12-01 14:02:00 77 mm[Hg] Zahraa Morelybo ld - External Heart rate 2023-12-01 14:02:00 62 /min Mingose y Seybold - External Body temperature 2023-12-01 14:02:00 36.44 Cecilia Zahraa Seybold - External Respiratory rate 2023-12-01 14:02:00 18 /min Zahraa Seybold - External Body height 2023-12-01 14:02:00 152.4 cm Onelia ey Seybold - External Body weight 2023-12-01 14:02:00 76.295 kg Onelia ey Seybold - External BMI 2023-12-01 14:02:00 32.85 kg/m2 Onelia ey Seybold - External Systolic blood pressure 2023-07-07 21:04:00 118 mm[Hg] Zahraa Seybo ld - External Diastolic blood pressure 2023-07-07 21:04:00 62 mm[Hg] Zahraa Seybo ld - External Heart rate 2023-07-07 21:04:00 68 /min Kelse y Seybold - External Body temperature 2023-07-07 21:04:00 36.61 Cecilia Zahraa Seybold - External Respiratory rate 2023-07-07 21:04:00 18 /min Zahraa Seybold - External Body height 2023-07-07 21:04:00 152.4 cm Onelia ey Seybold - External Body weight 2023-07-07 21:04:00 76.374 kg Onelia ey Seybold - External BMI 2023-07-07 21:04:00 32.88 kg/m2 Onelia ey Seybold - External Oxygen saturation in Arterial blood by Pulse oximetry 2023-07-07 21:04:00 98 /min Zahraa Seybo ld - External Systolic blood pressure 2023-05-15 15:14:00 136 mm[Hg] Zahraa Seybo ld - External Diastolic blood pressure 2023-05-15 15:14:00 80 mm[Hg] Zahraa Seybo ld - External Heart rate 2023-05-15 15:14:00 75 /min Mingose y Seybold - External Body temperature 2023-05-15 15:14:00 36.61 Cecilia Zahraa Seybold - External Respiratory rate 2023-05-15 15:14:00 18 /min Zahraa Seybold - External Body height 2023-05-15 15:14:00 152.4 cm Onelia ey Seybold - External Body weight 2023-05-15 15:14:00 74.39 kg Onelia ey Seybold - External BMI 2023-05-15 15:14:00 32.03 kg/m2 Onelia ey Seybold - External Oxygen saturation in Arterial blood by Pulse oximetry 2023-05-15 15:14:00 98 /min Zahraa Seybo ld - External Systolic blood pressure 2023-04-13 21:59:00 146 mm[Hg] Zahraa Seybo ld - External Diastolic blood pressure 2023-04-13 21:59:00 78 mm[Hg] Zahraa Seybo ld - External Heart rate 2023-04-13 21:59:00 68 /min Kelse y Seybold - External Body temperature 2023-04-13 21:59:00 36.39 Cecilia Zahraa Duncan - External Respiratory rate 2023-04-13 21:59:00 20 /min Zahraa Duncan - External Body height 2023-04-13 21:59:00 152.4 cm Onelia reinoso Seybold - External Body weight 2023-04-13 21:59:00 78.291 kg Onelia ey Seybold - External BMI 2023-04-13 21:59:00 33.71 kg/m2 Onelia reinoso Seybold - External Oxygen saturation in Arterial blood by Pulse oximetry 2023-04-13 21:59:00 99 /min Zahraa Carter ld - External height 2023-04-05 16:00:00 59.25 [in_i] Com [facility] weight 2023-04-05 16:00:00 171 [lb_av] Comm [facility] temperature 2023-04-05 16:00:00 98.5 [degF] Com [facility] bmi 2023-04-05 16:00:00 34.24 kg/m2 Comm [facility] oximetry 2023-04-05 16:00:00 96 % Commo n [facility] respiratory rate 2023-04-05 16:00:00 18 /min [facility] blood pressure systolic 2023-04-05 16:00:00 145 mm[Hg] [facility] blood pressure diastolic 2023-04-05 16:00:00 95 mm[Hg] [facility] height 2023-01-30 16:40:00 59.25 [in_i] Com [facility] weight 2023-01-30 16:40:00 170 [lb_av] Comm on [facility] temperature 2023-01-30 16:40:00 98 [degF] Comm on [facility] bmi 2023-01-30 16:40:00 34.04 kg/m2 Comm [facility] oximetry 2023-01-30 16:40:00 98 % Com[facility] respiratory rate 2023-01-30 16:40:00 17 /min [facility] blood pressure systolic 2023-01-30 16:40:00 128 mm[Hg] [facility] blood pressure diastolic 2023-01-30 16:40:00 70 mm[Hg] [facility] height 2022-11-29 16:00:00 59.25 [in_i] Com [facility] weight 2022-11-29 16:00:00 166 [lb_av] Comm on [facility] temperature 2022-11-29 16:00:00 97.3 [degF] Com [facility] bmi 2022-11-29 16:00:00 33.24 kg/m2 Comm on [facility] oximetry 2022-11-29 16:00:00 99 % Commo [facility] respiratory rate 2022-11-29 16:00:00 18 /min [facility] blood pressure systolic 2022-11-29 16:00:00 136 mm[Hg] [facility] blood pressure diastolic 2022-11-29 16:00:00 84 mm[Hg] [facility] height 2022-07-01 09:20:00 60.00 [in_i] Com [facility] weight 2022-07-01 09:20:00 169.0 [lb_av] Co mmon [facility] temperature 2022-07-01 09:20:00 97.5 [degF] Com [facility] bmi 2022-07-01 09:20:00 33 kg/m2 Commo n [facility] oximetry 2022-07-01 09:20:00 97 % Commo n [facility] respiratory rate 2022-07-01 09:20:00 17 /min [facility] blood pressure systolic 2022-07-01 09:20:00 139 mm[Hg] [facility] blood pressure diastolic 2022-07-01 09:20:00 70 mm[Hg] [facility] Systolic blood pressure 2021-07-16 16:24:00 150 mm[Hg] [facility] Diastolic blood pressure 2021-07-16 16:24:00 82 mm[Hg] [facility] Heart rate 2021-07-16 16:18:00 61 /min [facility] Body temperature 2021-07-16 16:18:00 36.28 Cecilia [facility] Body height 2021-07-16 16:18:00 149.9 cm [facility] Body weight 2021-07-16 16:18:00 77.883 kg [facility] BMI 2021-07-16 16:18:00 34.68 kg/m2 [facility] height 2021-02-18 11:00:00 60.00 [in_i] Com [facility] weight 2021-02-18 11:00:00 163 [lb_av] Comm [facility] temperature 2021-02-18 11:00:00 97.4 [degF] Com [facility] bmi 2021-02-18 11:00:00 31.83 kg/m2 [facility] oximetry 2021-02-18 11:00:00 96 % Commo n [facility] blood pressure systolic 2021-02-18 11:00:00 134 mm[Hg] [facility] blood pressure diastolic 2021-02-18 11:00:00 84 mm[Hg] [facility] Procedures Procedure Date / Time Performed Performing Clinician Source CARCINOEMBRYONIC ANTIGEN 2021-07-16 17:24:00 Renee Jack [facility] COMP. METABOLIC PANEL (80562) 2021-07-16 17:24:00 Zach Jack [facility] CA-125 2021-07-16 17:24:00 Zach Jack [facility] CBC WITH DIFF 2021-07-16 17:24:00 Zach Jack [facility] Encounters Start Date/Time End Date/Time Encounter Type Admission Type Attending [facility] Facility Care Department Encounter ID Source 2022-11-29 15:24:00 Outpatient Yaquelin Rouse STLMLC STLMLC [id number] [facility] 2022-11-04 16:59:00 Outpatient STLMLC STLMLC [id number] [facility] 2022-06-29 16:29:00 Outpatient Ana Lee STLMLC STLMLC [id number] [facility] 2021-12-02 13:31:00 Outpatient Arita, Na STLMLC STLMLC [id number] [facility] 2021-07-28 16:24:01 Outpatient Arita, Na STLMLC STLMLC [id number] [facility] 2021-06-02 12:54:58 Outpatient Arita, Na STLMLC STLMLC [id number] [facility] 2021-06-02 12:49:12 Outpatient Arita, Na STLMLC STLMLC [id number] [facility] 2021-06-02 12:45:36 Outpatient Arita, Na STLMLC STLMLC [id number] [facility] 2021-06-02 11:18:46 Outpatient Arita, Na STLMLC STLMLC [id number] [facility] 2021-06-02 11:18:31 Outpatient Arita, Na STLMLC STLMLC [id number] [facility] 2024-05-22 15:30:00 2024-05-22 15:30:00 Outpatient SILVIO PLASENCIA [id number] Zahraa Duncan 2024-05-10 10:00:00 2024-05-10 10:00:00 Outpatient ZAHRAA DAVID [id number] [facility]raa [facility] 2024-04-12 00:00:00 2024-04-12 00:00:00 Outpatient ELANA ESPINOZA ZAHRAA DAVID [id number] [facility] 2024-03-25 16:00:00 2024-03-25 16:00:00 Outpatient SILVIO PLASENCIA [id number] [facility]ahraa [facility] 2024-03-08 10:45:00 2024-03-08 10:45:00 Outpatient HARIKA ZAHRAA DAVID [id number] [facility] 2024-03-08 10:00:00 2024-03-08 10:00:00 Outpatient TIMOTEO SANTIAGO [id number] [facility] 2024-03-08 00:00:00 2024-03-08 00:00:00 Outpatient TIMOTEO SANTIAGO [id number] [facility] 2024-02-22 09:00:00 2024-02-22 09:00:00 Outpatient SILVIO PLASENCIA [id number] [facility]ahraa [facility] 2024-02-13 15:15:00 2024-02-13 15:15:00 Outpatient TIMOTEO SANTIAGO [id number] [facility]raa [facility] 2024-01-28 00:00:00 2024-01-28 00:00:00 (TEL) [facility] [id number] [facility] 2024-01-26 00:00:00 2024-01-26 00:00:00 Outpatient AIME WILD [id number] [facility] 2024-01-25 14:30:00 2024-01-25 14:30:00 [facility]IA [id number] [facility] 2024-01-19 00:00:00 2024-01-19 00:00:00 [facility] [id number] [facility] 2024-01-18 13:00:00 2024-01-18 13:00:00 Outpatient AIME WILD ZAHRAA DAVID [id number] [facility] 2024-01-17 00:00:00 2024-01-17 00:00:00 Outpatient MD ZAHRAA NARAYANAN [id number] [facility] 2024-01-10 00:00:00 2024-01-10 00:00:00 Outpatient SILVIO PLASENCIA ZAHRAA DAVID [id number] [facility] 2024-01-09 00:00:00 2024-01-09 00:00:00 Outpatient SILVIO PLASENCIA ZAHRAA DAVID [id number] Zahraa Seybold 2023-12-01 09:20:00 2023-12-01 09:20:00 Outpatient AIME WILD ZAHRAA DAVID [id number] [facility] 2023-12-01 00:00:00 2023-12-01 00:00:00 Outpatient ZAHRAA DAVID [id number] [facility] 2023-09-29 00:00:00 2023-09-29 00:00:00 Outpatient SILVIO PLASENCIA ZAHRAA DAVID [id number] [facility] 2023-09-15 11:00:00 2023-09-15 11:00:00 Outpatient TIMOTEO SANTIAGO [id number] [facility] 2023-08-18 09:00:00 2023-08-18 09:00:00 Outpatient ZAHRAA DAVID [id number] [facility] 2023-08-17 13:05:00 2023-08-17 13:05:00 Outpatient ZAHRAA DAVID [id number] [facility] 2023-08-17 00:00:00 2023-08-17 00:00:00 Outpatient SILVIO PLASENCIA ZAHRAA DAVID [id number] [facility] 2023-08-15 15:25:00 2023-08-15 15:25:00 Outpatient STACIE DAVID [id number] Zahraa Seybold 2023-08-11 14:00:00 2023-08-11 14:00:00 Outpatient ZAHRAA DAVID [id number] Zahraa Seybold 2023-08-11 00:00:00 2023-08-11 00:00:00 Outpatient [facility] ZAHRAA DAVID [id number] Zahraa [facility]ador 2023-08-09 09:20:00 2023-08-09 09:20:00 Outpatient ZAHRAA DAVID [id number] Zahraa Dakota 2023-08-09 00:00:00 2023-08-09 00:00:00 Outpatient ELANA ESPINOZA ZAHRAA ZAHRAA [id number] [facility] 2023-08-07 15:00:00 2023-08-07 15:00:00 Outpatient LAB90 ZAHRAA DAVID [id number] [facility]ahraa [facility] 2023-08-07 00:00:00 2023-08-07 00:00:00 Outpatient ELANA ESPINOZA ZAHRAA DAVID [id number] [facility] 2023-08-07 00:00:00 2023-08-07 00:00:00 Outpatient LUIS ANGEL SILVIO ZAHRAA DAVID [id number] [facility] 2023-07-07 15:30:00 2023-07-07 15:30:00 Outpatient SILVIO PLASENCIA ZAHRAA DAVID [id number] [facility] 2023-06-29 00:00:00 2023-06-29 00:00:00 Outpatient SILVIO PLASENCIA ZAHRAA DAVID [id number] [facility] 2023-06-19 00:00:00 2023-06-19 00:00:00 Outpatient LUIS ANGEL SILVIO ZAHRAA DAVID [id number] [facility] 2023-06-15 15:00:00 2023-06-15 15:00:00 Outpatient ZAHRAA DAVID [id number] [facility] 2023-06-15 14:00:00 2023-06-15 14:00:00 Outpatient ZAHRAA DAVID [id number] [facility] 2023-06-06 00:00:00 2023-06-06 00:00:00 Outpatient SILVIO PLASENCIA [id number] [facility] 2023-06-06 00:00:00 2023-06-06 00:00:00 Outpatient AIME WILD [id number] [facility] 2023-06-05 00:00:00 2023-06-05 00:00:00 Outpatient SILVIO PLASENCIA [facility]HRAA [id number] [facility] 2023-05-22 00:00:00 2023-05-22 00:00:00 Outpatient SILVIO PLASENCIA [facility]HRAA [id number] [facility] 2023-05-19 10:40:00 2023-05-19 10:40:00 Outpatient LAB90 ZAHRAA GORDONSEY [id number] [facility] 2023-05-17 00:00:00 2023-05-17 00:00:00 Outpatient SILVIO PLASENCIALOIS DAVID [id number] [facility] 2023-05-15 10:15:00 2023-05-15 10:15:00 Outpatient LAB90 ZAHRAA ZAHRAA [id number] [facility] 2023-05-15 09:30:00 2023-05-15 09:30:00 Outpatient SILVIO PLASENCIA ZAHRAA [id number] [facility] 2023-04-25 00:00:00 2023-04-25 00:00:00 Outpatient SILVIO PLASENCIALOIS DAVID [id number] [facility] 2023-04-19 00:00:00 2023-04-19 00:00:00 Outpatient SILVIO PLASENCIALOIS DAVID [id number] [facility] 2023-04-13 16:00:00 2023-04-13 16:00:00 Outpatient SILVIO PLASENCIA ZAHRAA [id number] [facility] 2023-04-05 00:00:00 2023-04-05 00:00:00 OFFICE VISIT ESTAB PT LEVEL 3 STLMLC STLMLC [id number] [facility] 2023-03-01 00:00:00 2023-03-01 00:00:00 (TEL) STLMLC STLMLC [id number] [facility] 2023-01-30 00:00:00 2023-01-30 00:00:00 OFFICE VISIT ESTAB PT LEVEL 3 STLMLC STLMLC [id number] [facility] 2023-01-04 00:00:00 2023-01-04 00:00:00 (TEL) STLMLC STLMLC [id number] [facility] 2022-11-29 00:00:00 2022-11-29 00:00:00 OFFICE VISIT NEW PT LEVEL 3 STLMLC STLMLC [id number] [facility] 2022-11-29 00:00:00 2022-11-29 00:00:00 (TEL) STLMLC STLMLC [id number] [facility] 2022-11-04 00:00:00 2022-11-04 00:00:00 (TEL) STLMLC STLMLC [id number] [facility] 2022-07-12 00:00:00 2022-07-12 00:00:00 Letter (Out) Ruth Foote [facility] FISHING GUIDE [facility] 1.2.840.114 350.1.13.10 4.2.7.2.686 [id number] [facility] 2022-07-01 00:00:00 2022-07-01 00:00:00 OFFICE VISIT ESTAB PT LEVEL 3 STLMLC STLMLC [id number] [facility] 2022-06-29 00:00:00 2022-06-29 00:00:00 (TEL) STLMLC STLMLC [id number] [facility] 2022-04-08 00:00:00 2022-04-08 00:00:00 (TEL) STLMLC STLMLC [id number] [facility] 2021-11-01 00:00:00 2021-11-01 00:00:00 (TEL) STLMLC STLMLC [id number] [facility] 2021-10-28 00:00:00 2021-10-28 00:00:00 (TEL) STLMLC STLMLC [id number] [facility] 2021-08-27 00:00:00 2021-08-27 00:00:[address] [facility] 1..840.114 350.1.13.10 4.2.7.2.686 [id number] [facility] 2021-08-25 00:00:00 2021-08-25 00:00:00 OL DIG E/M SVC 11-20 MIN STLMLC STLMLC [id number] [facility] 2021-08-25 00:00:00 2021-08-25 00:00:00 (TEL) STLMLC STLMLC [id number] [facility] 2021-07-16 10:00:00 2021-07-16 11:54:23 Outpatient R DOROTHY URBANO [facility] [id number] [facility] 2021-07-16 10:00:00 2021-07-16 11:54:23 Office Visit Pgy2 Marla Barger Perry [facility] 1..840.114 350.1.13.10 4.2.7.2.686 [id number] [facility] 2021-07-13 06:35:10 2021-07-13 23:59:00 Outpatient R RUTH FOOTE [facility] [id number] [facility] 2021-07-13 06:35:10 2021-07-13 23:59:00 Hospital Encounter Ruth Foote [facility] 1..840.114 350.1.13.10 4.2.7.2.686 [id number] [facility] 2021-07-13 00:00:00 2021-07-13 00:00:00 Outpatient R RUTH FOOTE [facility] [id number] [facility] 2021-07-13 00:00:00 2021-07-13 00:00:00 Outpatient R RUTH FOOTE [facility] [id number] [facility] 2021-06-22 00:00:00 2021-06-22 00:00:00 Telephone Pgy2 [facility] 1..114 350.1.13.10 4.2.7.2.686 [id number] [facility] 2021-06-14 13:34:01 2021-06-14 23:59:00 Outpatient DOROTHY BERMUDEZ [facility] [id number] [facility] 2021-06-14 13:30:00 2021-06-14 23:59:00 Hospital Encounter Dorothy Urbano [facility] 1.84.114 350.1.13.10 4.2.7.2.686 [id number] [facility] 2021-06-09 00:00:00 2021-06-09 00:00:00 Orders Only Doctor Unassigned, Portia [facility] 1.84.114 350.1.13.10 4.2.7.2.686 [id number] [facility] 2021-05-26 13:30:00 2021-05-26 14:27:06 Outpatient DOROTHY BERMUDEZ [facility] [id number] [facility] 2021-05-26 13:30:00 2021-05-26 14:27:06 Outpatient DOROTHY BERMUDEZ [facility] [id number] [facility] 2021-05-26 13:30:00 2021-05-26 14:27:06 Office Visit Pgy1 Dorothy Urbano [facility] 1.84.114 350.1.13.10 4.2.7.2.686 [id number] [facility] 2021-05-26 13:30:00 2021-05-26 13:30:00 [id number] 2021-05-19 00:00:00 2021-05-19 00:00:00 Telephone Ruth Foote [facility] FISHING GUIDE [facility] 1.2.840.114 350.1.13.10 4.2.7.2.686 [id number] [facility] 2021-05-18 00:00:00 2021-05-18 00:00:00 Telephone Ruth Foote [facility] FISHING GUIDE [facility] 1.2.840.114 350.1.13.10 4.2.7.2.686 [id number] [facility] 2021-05-17 15:15:00 2021-05-17 16:35:01 Outpatient R RUTH FOOTE [facility] [id number] [facility] 2021-05-17 15:15:00 2021-05-17 16:35:01 Office Visit Ruth Foote [facility] FISH[facility] 1.2.840.114 350.1.13.10 4.2.7.2.686 [id number] [facility] 2021-05-17 15:15:00 2021-05-17 16:35:01 Outpatient R RUTH FOOTE [facility] [id number] [facility] 2021-05-17 00:00:00 2021-05-17 00:00:00 Orders Only Doctor Unassigned, Portia [facility] 1.2.840.114 350.1.13.10 4.2.7.2.686 [id number] [facility] 2021-02-18 00:00:00 2021-02-18 00:00:00 OFFICE VISIT EST PT LEVEL 3 STLMLC STLMLC [id number] [facility] 2020-08-19 00:00:00 2020-08-19 00:00:00 Outpatient STLMLC STLMLC [id number] [facility] 2020-08-03 00:00:00 2020-08-03 00:00:00 Outpatient STLMLC STLMLC [id number] [facility] 2020-04-24 00:00:00 2020-04-24 00:00:00 Outpatient STLMLC STLMLC [id number] [facility] 2020-01-10 14:17:00 2020-01-10 14:17:[address] [facility] [facility] [id number] [facility] 2019-08-29 11:00:00 2019-08-29 11:00:00 [facility] [id number] [facility] 2019-02-26 11:00:00 2019-02-26 11:00:00 [facility] [id number] [facility] 2018-07-24 09:00:00 2018-07-24 09:00:00 [facility] [id number] [facility] 2018-05-23 09:53:00 2018-05-23 09:53:00 [facility] [id number] [facility] 2018-05-22 16:53:00 2018-05-22 16:53:00 [facility] [id number] [facility] 2018-04-20 08:31:00 2018-04-20 08:31:00 [facility] [id number] [facility] 2018-04-11 10:15:00 2018-04-11 10:15:00 [facility] [id number] [facility] 2017-10-04 08:45:00 2017-10-04 08:45:00 [facility] [id number] [facility] Results Test Description Test Time Test Comments Results Result Co mments Source CARCINOEMBRYONIC [id number] 21:14:24* Test Item Value Reference Range Interpretation Comme nts CEA (test code = 0295392071) 2.6 ng/mL 0.0-10.0 ADRIANA (test code = ADRIANA) CEA Ranges: Non-Smokers ?0-5.0 ng/mLSmokers ? ? ?0-10.0 ng/mL Lab Interpretation (test code = 77204-2) [id number] 21:14:24* Test Item Value Reference Range Interpretation Comme nts CA-125 (test code = 3316421963) 5.7 U/mL 0.0-35.0 Lab Interpretation (test cod e = 33718-0) [facility] (12593)2021-07-16 20:04:36* Test Item Value Reference Range Interpretation Comme nts NA (test code = 0777096300) 138 mmol/L 135-145 K (test code = 1411175200) 4.3 mmol/L 3.5-5.0 CL (test code = 9977714893) 108 mmol/L 98-108 CO2 TOTAL (test code = 8226000641) 29 mmol/L 23-31 AGAP (test code = 5009695505) 2-16 L BUN (test code = 7022573990) 8 mg/dL 7-23 GLUCOSE (test code = 8604456866) 92 mg/dL 70-110 CREATININE (test code = 8924112740) 0.64 mg/dL 0.50-1.04 TOTAL BILI (test code = 8218319380) 0.4 mg/dL 0.1-1.1 CALCIUM (test code = 1577608881) 9.0 mg/dL 8.6-10.6 T PROTEIN (test code = 3786569281) 7.4 g/dL 6.3-8.2 ALBUMIN (test code = 5737706127) 4.6 g/dL 3.5-5.0 ALK PHOS (test code = 0477022129) 87 U/L 34-122 ALTv (test code = 1742-6) 18 U/L 5-35 AST(SGOT) (test code = 2746980977) 21 U/L 13-40 eGFR (test code = 1174739645) mL/min/1.73m2 ADRIANA (test code = ADRIANA) Association of Glomerular Filtration Rate (GFR) and Staging of Kidney Disease* + --+ --+ ------+| GFR (mL/min/1.73 m2) ?| With Kidney Damage ?| ?Without Kidney Damage+ --------+ --------+ +| ?>90 ?| ?Stage one ?| ? Normal ?+ ---+ ---+ -------+| ?60-89 ?| ?Stage two ?| ? Decreased GFR ? + --+ --+ ------+| ?30-59 ?| ?Stage three ?| ? Stage three ? + --+ --+ ------+| ?15-29 ?| ?Stage four ? | ? Stage four ?+ ---+ ---+ -------+| ?<15 (or dialysis) ? ?| ?Stage five ? | ? Stage five ?+ ---+ ---+ -------+ *Each stage assumes the associated GFR level has been in effect for at least three months. ?Stages 1 to 5, with or without kidney disease, indicate chronic kidney disease. Notes: Determination of stages one and two (with eGFR >59mL/min/1.73 m2) requires estimation of kidney damage for at least three months as defined by structural or functional abnormalities of the kidney, manifested by either:Pathological abnormalities or Markers of kidney damage (including abnormalities in the composition of the blood or urine or abnormalities in imaging tests). Lab Interpretation (test code = 25600-9) Abnormal [facility] WITH [id number] 19:58:14* Test Item Value Reference Range Interpretation Comme nts WBC (test code = 6690-2) See_Comment [Whois] The system which generated this result transmitted reference range: 4.30 - 11.10 10*3/?L. The reference range was not used to interpret this result as normal/abnormal. RBC (test code = 789-8) See_Comment [Automated Chromasun] The system which generated this result transmitted reference range: 3.93 - 5.25 10*6/?L. The reference range was not used to interpret this result as normal/abnormal. HGB (test code = 718-7) 13.4 g/dL 11.6-15.0 HCT (test code = 4544-3) 41.6 % 35.7-45.2 MCV (test code = 787-2) 83.0 fL 80.6-95.5 MCH (test code = 785-6) 26.7 pg 25.9-32.8 MCHC (test code = 786-4) 32.2 g/dL 31.6-35.1 RDW-SD (test code = 14553-5) 41.4 fL 39.0-49.9 RDW-CV (test code = 788-0) 13.8 % 12.0-15.5 PLT (test code = 777-3) See_Comment [Automated messa ge] The system which generated this result transmitted reference range: 166 - 358 10*3/?L. The reference range was not used to interpret this result as normal/abnormal. MPV (test code = 13752-4) 10.2 fL 9.5-12.9 NRBC/100 WBC (test code = 2095011955) See_Comment [Automated me ssage] The system which generated this result transmitted reference range: 0.0 - 10.0 /100 WBCs. The reference range was not used to interpret this result as normal/abnormal. NRBC x10^3 (test code = 6281313389) <0.01 See_Comment [Automated me ssage] The system which generated this result transmitted reference range: 10*3/?L. The reference range was not used to interpret this result as normal/abnormal. GRAN MAT (NEUT) % (test code = 770-8) 45.1 % IMM GRAN % (test code = 4111082342) 0.20 % LYMPH % (test code = 736-9) 46.4 % MONO % (test code = 5905-5) 5.7 % EOS % (test code = 713-8) 1.8 % BASO % (test code = 706-2) 0.8 % GRAN MAT x10^3(ANC) (test code = 5534357171) 2.69 10*3/uL 1.88-7.09 IMM GRAN x10^3 (test code = 8157420340) <0.03 0.00-0.06 LYMPH x10^3 (test code = 731-0) 2.77 10*3/uL 1.32-3.29 MONO x10^3 (test code = 742-7) 0.34 10*3/uL 0.33-0.92 EOS x10^3 (test code = 711-2) 0.11 10*3/uL 0.03-0.39 BASO x10^3 (test code = 704-7) 0.05 10*3/uL 0.01-0.07 [facility] History and Physical Notes Date/Time Note Provider Source 2023-12-01 09:11:16 Zahraa [facility] CC: Here for colon cancer screening HPI: Patient is a 63 year old female here For colon cancer screening NO FH colon cancer FIT postivie stool No bleeding No diarrhea Rare ETOH use. No cp/sob Pt does have GERD On/off dysphagia Taking rolaid Not progressing No prior EGD Past Medical History: Diagnosis Date Anxiety Depression High cholesterol Hypertension Prediabetes Past Surgical History: Procedure Laterality Date PARTIAL HYSTERECTOMY patient has both ovaries - 1997 Social History Tobacco Use Smoking status: Every Day Current packs/day: 2.00 Average packs/day: 2.0 packs/day for 10.0 years (20.0 ttl pk-yrs) Types: Cigarettes Smokeless tobacco: Never Vaping Use Vaping status: Never Used Substance Use Topics Alcohol use: Yes Comment: socially Drug use: Never No Known Allergies Current Outpatient Medications on File Prior to Visit Medication Sig Dispense Refill Amlodipine Besylate 10 MG oral Tablet Take 1 tablet (10 mg total) by mouth every 24 hours. 10 tablet 0 Atorvastatin Calcium 20 MG oral Tablet Take 1 tablet (20 mg total) by mouth every 24 hours. 10 tablet 0 busPIRone HCl 5 MG oral Tablet Take 1 tablet (5 mg total) by mouth 2 times daily. 15 tablet 0 Carvedilol (Coreg) 6.25 MG oral Tablet Take 1 tablet (6.25 mg total) by mouth in the morning and 1 tablet (6.25 mg total) in the evening. Take with meals. 15 tablet 0 Fluoxetine HCl (PROzac) 20 MG oral Capsule Take 1 capsule (20 mg total) by mouth every 24 hours. 10 capsule 0 LISINOPRIL-HCTZ 20-25 MG oral Tablet Take 1 tablet by mouth every 24 hours. 10 tablet 0 No current facility-administered medications on file prior to visit. BP 130/77 | Pulse 62 | Temp 97.6 ?F (36.4 ?C) (Oral) | Resp 18 | Ht 5' (1.524 m) | Wt 168 lb 3.2 oz (76.3 kg) | BMI 32.85 kg/m? GEN: Alert and oriented HEENT:no jaundice, no oral ulcers, no eye erythema CV: RRR RESP: no distress ABD:soft, NTTp SKIN: no rash NEURO: Follows commands Labs reviewed Assessment: 63 year old patient 1.) Colon cancer screening 2.) FIT positive stool 3.) GERD/ rare bouts dysphagia. Taking PRN rolaids - PPI - EGD/Colonoscopy with conscious sedation Risk and benefits about procedure discussed, including, but not limited to perforation, bleeding, reaction to medications and missed lesions. Alternative options provided. All patients questions answered to patient's satisfaction. Aime Wild MD Gastroenterology [facility]"
== END 2024-04-12 17:06 | disposition home or self-care (01) ==
LOC: ER 15:05
DX: N39.0 Urinary tract infection, site not specified (principal); I10 Essential (primary) hypertension
CPT/HCPCS: 81001; 87077; 87086; 87088; 87186; 96372; 99284